=== PATIENT | male | born 1950 | race Two or more races ===

== ENCOUNTER 2017-12-22 15:06 | Outpatient (CLI) | payer OTHER | END 2017-12-22 15:11 | disposition home or self-care (01) | LOC: SONOGRAMA 15:06 | DX: M75.102 Unspecified rotator cuff tear or rupture of left shoulder, not specified as traumatic (principal) ==

== ENCOUNTER 2018-01-04 10:07 | Outpatient (CLI) | payer OTHER | END 2018-01-04 10:14 | disposition home or self-care (01) | LOC: RAD 501 10:07 | DX: M47.22 Other spondylosis with radiculopathy, cervical region (principal) ==

== ENCOUNTER 2022-12-30 07:41 | Outpatient (CLI) | payer OTHER | END 2022-12-30 07:49 | disposition home or self-care (01) | LOC: TOM 07:41 | PROVIDERS: ATTEND Otolaryngology Otology & Neurotology | DX: K57.92 Diverticulitis of intestine, part unspecified, without perforation or abscess without bleeding (principal) ==

== ENCOUNTER 2023-11-22 13:51 | Outpatient (CLI) | payer OTHER ==
[~2023-11-22 13:51] MED LIST: CIPRO500 MG PO; FLAGYL375 MG PO; HYOSCYAMINE0.125 M1 SL; MAG-AL PLUS SUS30 M1 PO; PANTOPRAZOLE SO40 MG PO; PEPCID AC20 MG PO
[2023-11-22 16:06] LABS: PH,URINE 5.5 (5.0-8.0); URINE APPEARANCE Clear; URINE BILIRRUBIN Negative (NEGATIVE); URINE BLOOD Negative; URINE COLOR Yellow; URINE GLUCOSE Negative (NEGATIVE); URINE LEUKOCYTE Negative; URINE NITRATE Negative; URINE PROTEIN Negative (NEGATIVE); URINE UROBILINOGEN 0.2 E.U./dl
[2023-11-22 16:09] LABS: URINE BACTERIA 21.4 uL (0.0-1933); URINE RBC 7.6 uL (0.0-20.8); URINE WBC 0.6 uL (0.0-23.2)
[2023-11-22 16:22] LABS: HEMATOCRIT 42.9 % (39.0-48.0); HEMOGLOBIN 14.5 g/dL (13-16.00); MEAN CELL VOLUME 94.3 fL (80.0-100.00); MEAN CORPUSCULAR HEMOGLOBIN 31.8 pg (27.00-32.0); MEAN CORPUSCULAR HGB CONC 33.7 g/dl (32.0-36.0); PLATELET COUNT 247 K/uL (150-450); RED BLOOD COUNT 4.55 M/uL (4.00-6.00); RED CELL DISTRIBUTION WIDTH 13.9 % (11.5-14.5)
[2023-11-22 17:08] LABS: ALBUMIN 4.2 gm/dL (3.4-5.0); BILIRUBIN TOTAL 0.55 mg/dL (0.3-1.2); CALCIUM 9.8 mg/dL (8.5-10.1); CHOL HDL RATIO 3.6 (0-5.0); CREATININE SERUM 0.91 mg/dL (0.70-1.30); GFR 81.44; GLOBULINA 3.3 G/DL (2.4-3.5); POTASSIUM 4.43 mEq/L (3.5-5.1); PROSTATIC SPECIFIC ANTIGEN 1.92 NG/ML (0.010-4.00); TOTAL PROTEIN 7.5 gm/dL (6.4-8.2)
[2023-11-24 09:10] LABS: hav igm Negative (Negative); hcv Non Reactive (Non Reactive); hep b c Negative (Negative)
[2023-11-24 11:07] LABS: CA 19-9 7 U/mL (0-35)
== END 2023-11-22 14:10 | disposition home or self-care (01) ==
LOC: LAB 13:51
PROVIDERS: ATTEND Internal Medicine Cardiovascular Disease
DX: Z12.11 Encounter for screening for malignant neoplasm of colon (principal); A64 Unspecified sexually transmitted disease; B20 Human immunodeficiency virus [HIV] disease; N39.0 Urinary tract infection, site not specified; N41.0 Acute prostatitis; E03.8 Other specified hypothyroidism; E11.9 Type 2 diabetes mellitus without complications; I10 Essential (primary) hypertension

== ENCOUNTER 2023-11-23 11:20 | Outpatient (CLI) | payer OTHER ==
[2023-11-23 12:44] LABS: ob NEGATIVE (NEGATIVE)
== END 2023-11-23 11:24 | disposition home or self-care (01) ==
LOC: LAB 11:20
PROVIDERS: ATTEND Internal Medicine Cardiovascular Disease
DX: A64 Unspecified sexually transmitted disease (principal); N39.0 Urinary tract infection, site not specified; N41.0 Acute prostatitis; Z12.11 Encounter for screening for malignant neoplasm of colon; B20 Human immunodeficiency virus [HIV] disease; E11.9 Type 2 diabetes mellitus without complications; E03.8 Other specified hypothyroidism

== ENCOUNTER 2023-11-27 13:19 | Outpatient (CLI) | payer OTHER | END 2023-11-27 13:31 | disposition home or self-care (01) | LOC: SONOGRAMA 13:19 | PROVIDERS: ATTEND Internal Medicine Cardiovascular Disease | DX: N41.0 Acute prostatitis (principal) ==

== ENCOUNTER 2024-02-21 14:45 | Outpatient (CLI) | payer OTHER ==
[2024-02-21 15:18] LABS: HEMATOCRIT 41.3 % (39.0-48.0); MEAN CELL VOLUME 95.1 fL (80.0-100.00); MEAN CORPUSCULAR HEMOGLOBIN 32.2 pg (27.00-32.0); MEAN CORPUSCULAR HGB CONC 33.8 g/dl (32.0-36.0); PLATELET COUNT 242 K/uL (150-450); RED BLOOD COUNT 4.35 M/uL (4.00-6.00)
[2024-02-21 15:40] LABS: ALBUMIN 3.9 gm/dL (3.4-5.0); BILIRUBIN TOTAL 0.37 mg/dL (0.3-1.2); CALCIUM 9.5 mg/dL (8.5-10.1); CREATININE SERUM 1.04 mg/dL (0.70-1.30); GFR 69.81; GLOBULINA 2.8 G/DL (2.4-3.5); POTASSIUM 4.55 mEq/L (3.5-5.1); TOTAL PROTEIN 6.7 gm/dL (6.4-8.2)
== END 2024-02-21 14:52 | disposition home or self-care (01) ==
LOC: LAB 14:45
PROVIDERS: ATTEND Internal Medicine Gastroenterology
DX: K57.32 Diverticulitis of large intestine without perforation or abscess without bleeding (principal); R10.30 Lower abdominal pain, unspecified; K57.30 Diverticulosis of large intestine without perforation or abscess without bleeding

== ENCOUNTER 2024-02-26 10:53 | Outpatient (CLI) | payer OTHER | END 2024-02-26 11:01 | disposition home or self-care (01) | LOC: TOM 10:53 | PROVIDERS: ATTEND Internal Medicine Gastroenterology | DX: K57.32 Diverticulitis of large intestine without perforation or abscess without bleeding (principal); R10.30 Lower abdominal pain, unspecified | CPT/HCPCS: 74177; Q9965 ==

== ENCOUNTER 2024-02-28 12:37 | Outpatient (CLI) | payer OTHER | END 2024-02-28 12:47 | disposition home or self-care (01) | LOC: RAD 12:37 | PROVIDERS: ATTEND Internal Medicine Cardiovascular Disease | DX: M54.50 Low back pain, unspecified (principal) ==

== ENCOUNTER 2024-05-17 09:15 | Inpatient (IN) | payer OTHER ==
[~2024-05-17] VITALS: Ht 30.5 cm; Wt 72.6 kg
[2024-06-07] MEDS ORDERED: CARDURA XL4 MG PO (10:01)
[2024-06-11] MEDS ORDERED: CEFTRIAXONE SODIUM 2,000 MG VIAL ONE (14:33)
[2024-06-11] MEDS ORDERED: BUPIVACAINE HCL/MPF 0.5% 30ML VIAL ONE (14:33)
[2024-06-11] MEDS ORDERED: METRONIDAZOLE/SODIUM CHLORIDE 500 MG/100 ML PIGGYBACK IV ONE (16:30)
[2024-06-11] MEDS ORDERED: BUPIVACAINE HCL 30 ML VIAL IJ ONE (16:30)
[2024-06-11] MEDS ORDERED: CEFTRIAXONE SODIUM 2,000 MG VIAL IV ONE (16:30)
[2024-06-11] MEDS ORDERED: LIDOCAINE HCL 1%/EPINEPHRINE 20ML VIAL IJ ONE (16:30)
[2024-06-11] MEDS ORDERED: SUGAMMADEX SODIUM 200 MG/2 ML VIAL IV ONE (16:58)
[2024-06-11] MEDS ORDERED: MORPHINE SULFATE 4 MG/ML VIAL IV ONE (18:10)
[2024-06-11] MEDS ORDERED: OxyCODONE HCL 5 MG TABLET (ROXICODONE) PO PRN (18:15)
[2024-06-11] MEDS ORDERED: DEXTROSE 50 % IN WATER 0.5 G/ML DISP.SYRIN IV PRN (18:15)
[2024-06-11] MEDS ORDERED: ONDANSETRON HCL 2 MG/ML VIAL IV PRN (18:15)
[2024-06-11] MEDS ORDERED: RINGERS SOLUTION,LACTATED 1,000 ML IV SCH (18:15)
[2024-06-11] MEDS ORDERED: MORPHINE SULFATE 4 MG/ML CARTRIDGE IV PRN (18:15)
[2024-06-11] MEDS ORDERED: MORPHINE SULFATE 2 MG/ML CARTRIDGE IV ONE (18:40)
[2024-06-11 19:01] LABS: HEMATOCRIT 42.5 % (39.0-48.0); MEAN CELL VOLUME 98.2 fL (80.0-100.00); MEAN CORPUSCULAR HEMOGLOBIN 32.4 pg (27.00-32.0); PLATELET COUNT 209 K/uL (150-450); RED BLOOD COUNT 4.33 M/uL (4.00-6.00); RED CELL DISTRIBUTION WIDTH 14.1 % (11.5-14.5)
[2024-06-11] MEDS ORDERED: ACETAMINOPHEN 500 MG GEL..CAP PO SCH (20:00)
[2024-06-11] MEDS ORDERED: FAMOTIDINE/PF 20 MG/2 ML VIAL IV PUSH SCH (21:00)
[2024-06-11] MEDS ORDERED: SIMETHICONE 125 MG CAPSULE PO SCH (21:00)
[2024-06-12 00:30] VITALS: BP 138/63; O2SAT 98
[2024-06-12] MEDS ORDERED: METOCLOPRAMIDE HCL 5 MG/ML VIAL IV SCH (01:00)
[2024-06-12] MEDS ORDERED: GABAPENTIN 300 MG CAPSULE PO SCH (01:00)
[2024-06-12] MEDS ORDERED: CELECOXIB 200 MG CAPSULE PO SCH (05:00)
[2024-06-12 06:27] LABS: HEMATOCRIT 39.3 % (39.0-48.0); HEMOGLOBIN 13.5 g/dL (13-16.00); MEAN CELL VOLUME 95.6 fL (80.0-100.00); MEAN CORPUSCULAR HEMOGLOBIN 32.9 pg (27.00-32.0); MEAN CORPUSCULAR HGB CONC 34.4 g/dl (32.0-36.0); PLATELET COUNT 201 K/uL (150-450); RED BLOOD COUNT 4.11 M/uL (4.00-6.00); RED CELL DISTRIBUTION WIDTH 14.1 % (11.5-14.5)
[2024-06-12 07:25] LABS: CALCIUM 8.3 mg/dL (8.5-10.1); CREATININE SERUM 0.87 mg/dL (0.70-1.30); GFR 85.78; MAGNESIUM 1.5 mg/dL (1.8-2.4); PHOSPHOROUS 3.6 mg/dL (2.5-4.9); POTASSIUM 4.06 mEq/L (3.5-5.1)
[2024-06-12 07:32] LABS: ALBUMIN 2.9 gm/dL (3.4-5.0); BILIRUBIN TOTAL 1.06 mg/dL (0.3-1.2); CALCIUM 8.6 mg/dL (8.5-10.1); CREATININE SERUM 0.88 mg/dL (0.70-1.30); GFR 84.65; GLOBULINA 2.4 G/DL (2.4-3.5); POTASSIUM 3.96 mEq/L (3.5-5.1); TOTAL PROTEIN 5.3 gm/dL (6.4-8.2)
[2024-06-12 08:30] VITALS: BP 120/60; O2SAT 96
[2024-06-12] MEDS ORDERED: LACTOBACILLUS ACIDOPHILUS 1 CAP CAP PO SCH (09:00)
[2024-06-12] MEDS ORDERED: HYOSCYAMINE SULFATE 0.125 MG TAB.SUBL SL SCH (09:00)
[2024-06-12] MEDS ORDERED: LACTULOSE 20 G/30 ML BLIST.PACK PO SCH (09:00)
[2024-06-12 16:00] VITALS: BP 140/64; O2SAT 96
[2024-06-12] MEDS ORDERED: ENOXAPARIN SODIUM 40 MG/0.4 ML SYRINGE SUBCUTANEO SCH (17:00)
[2024-06-12] MEDS ORDERED: POLYETHYLENE GLYCOL 3350 17 GM BLIST.PACK PO SCH (17:00)
[2024-06-13 01:28] VITALS: BP 116/56; O2SAT 99
[2024-06-13 08:00] VITALS: BP 140/73; O2SAT 98
[2024-06-13] MEDS ORDERED: ENOXAPARIN SODIUM 40 MG/0.4 ML SYRINGE SUBCUTANEO SCH (09:00)
== END 2024-06-13 09:35 | disposition home or self-care (01) | DRG 330 ==
LOC: SURG 06-11 07:00 → O/R 06-11 07:38 → SURH 06-11 07:38 → SURG 06-11 09:15 → SURH 06-11 14:13
PROVIDERS: Internal Medicine Cardiovascular Disease; ADMIT Colon & Rectal Surgery; ATTEND Colon & Rectal Surgery
PROC: 0DBP4ZZ Excision of Rectum, Percutaneous Endoscopic Approach (ICD-10-PCS; 2024-06-11)
PROC: 0DJD8ZZ Inspection of Lower Intestinal Tract, Via Natural or Artificial Opening Endoscopic (ICD-10-PCS; 2024-06-11)
PROC: 0DTN4ZZ Resection of Sigmoid Colon, Percutaneous Endoscopic Approach (ICD-10-PCS; principal; 2024-06-11 07:00)
DX: K57.30 Diverticulosis of large intestine without perforation or abscess without bleeding (principal); K92.1 Melena; K66.0 Peritoneal adhesions (postprocedural) (postinfection)

== ENCOUNTER 2024-05-31 09:37 | Outpatient (CLI) | payer OTHER ==
[2024-05-31 10:27] LABS: HEMATOCRIT 43.2 % (39.0-48.0); HEMOGLOBIN 14.8 g/dL (13-16.00); MEAN CELL VOLUME 95.9 fL (80.0-100.00); MEAN CORPUSCULAR HEMOGLOBIN 32.8 pg (27.00-32.0); MEAN CORPUSCULAR HGB CONC 34.2 g/dl (32.0-36.0); PLATELET COUNT 224 K/uL (150-450); RED BLOOD COUNT 4.51 M/uL (4.00-6.00); RED CELL DISTRIBUTION WIDTH 14.6 % (11.5-14.5)
[2024-05-31 10:33] LABS: PH,URINE 5.5 (5.0-8.0); URINE APPEARANCE Clear; URINE BILIRRUBIN Negative (NEGATIVE); URINE BLOOD Negative; URINE COLOR Yellow; URINE GLUCOSE Negative (NEGATIVE); URINE KETONE 15 (NEGATIVE); URINE LEUKOCYTE Negative; URINE NITRATE Negative; URINE PROTEIN Negative (NEGATIVE)
[2024-05-31 10:39] LABS: URINE BACTERIA 9.7 uL (0.0-1933); URINE EPITHELIAL CELLS 1.7 uL (0.0-38.8); URINE RBC 9.5 uL (0.0-20.8); URINE WBC 3.6 uL (0.0-23.2)
[2024-05-31 10:46] LABS: URINE CAST 0.14 uL (0.0-1.40)
[2024-05-31 10:52] LABS: INR 0.99; PARTIAL THROMBOPLASTIN TIME 27.1 SECONDS (22.0-34.0); PROTHROMBIN TIME 10.8 SECONDS (9.0-11.5)
[2024-05-31 11:29] LABS: ALBUMIN 3.8 gm/dL (3.4-5.0); BILIRUBIN TOTAL 0.82 mg/dL (0.3-1.2); CALCIUM 9.8 mg/dL (8.5-10.1); CREATININE SERUM 0.86 mg/dL (0.70-1.30); GFR 86.93; GLOBULINA 2.8 G/DL (2.4-3.5); POTASSIUM 4.2 mEq/L (3.5-5.1); TOTAL PROTEIN 6.6 gm/dL (6.4-8.2)
== END 2024-05-31 09:44 | disposition home or self-care (01) ==
LOC: RAD 09:37
PROVIDERS: ATTEND Colon & Rectal Surgery
DX: K57.20 Diverticulitis of large intestine with perforation and abscess without bleeding (principal); K92.1 Melena; I10 Essential (primary) hypertension